=== PATIENT | female | born 1970 | race Caucasian/White ===

== ENCOUNTER 2018-08-16 15:04 | Inpatient (IN) ==
[2018-08-16] MEDS ORDERED: NS 1/2 1000 ML IV 1,000 ML ONE (16:23)
[2018-08-16 16:31] LABS: BASOPHILS # (AUTO) 0.1 X10^3/uL (0.0-0.1); BASOPHILS % (AUTO) 0.7 % (0.2-1.0); EOSINOPHILS # (AUTO) 0.4 x10^3/uL (0.0-0.2); EOSINOPHILS % (AUTO) 3.9 % (0.9-2.9); HEMATOCRIT 46.1 % (36.0-47.0); HEMOGLOBIN 15.7 g/dL (12.0-16.0); LYMPHOCYTES # (AUTO) 2.5 X10^3/uL (1.3-2.9); LYMPHOCYTES % (AUTO) 25.2 % (21.0-51.0); MEAN CORPUSCULAR HEMOGLOBIN 30.6 pg (27.0-34.0); MEAN CORPUSCULAR HGB CONC 33.9 g/dL (33.0-35.0); MEAN PLATELET VOLUME 8.5 fL (7.4-11.0); MONOCYTES # (AUTO) 0.7 x10^3/uL (0.3-0.8); MONOCYTES % (AUTO) 6.5 % (0.0-13.0); NEUTROPHILS # (AUTO) 6.4 x10^3/uL (2.2-4.8); NEUTROPHILS % (AUTO) 63.7 % (42.0-75.0); PLATELET COUNT 332 X10^3/uL (150.0-450.0); RED BLOOD COUNT 5.13 X10^6/uL (3.5-5.4); RED CELL DISTRIBUTION WIDTH 14.2 % (11.6-16.5); WHITE BLOOD COUNT 10.1 X10^3/uL (3.6-10.0)
[2018-08-16 16:46] LABS: BLOOD UREA NITROGEN 9 mg/dL (7-18); CALCIUM 9.6 mg/dL (8.5-10.1); CHLORIDE 103 mmol/L (98-107); CREATININE 0.73 mg/dL (0.55-1.02); SODIUM 141 mmol/L (136-145); TROPONIN I < 0.02 ng/mL (0-1.5); eGFR NON BLACK RACES > 60 (>60)
[2018-08-16] MEDS ORDERED: ZOSYN VIAL 4.5 GRAMS IV ONE (16:50)
[2018-08-16 16:51] LABS: ALANINE AMINOTRANSFERASE 18 Units/L (12-78); ALBUMIN 3.7 g/dL (3.4-5.0); ALKALINE PHOSPHATASE 73 Units/L (46-116); ASPARTATE AMINO TRANSFERASE 14 Units/L (15-37); CREATINE KINASE 28 Units/L (26-192); CREATINE KINASE MB < 1.0 ng/mL (0-4.0); TOTAL PROTEIN 7.8 g/dL (6.4-8.2)
[2018-08-16] MEDS ORDERED: LEVAQUIN PREMIX IV 750 MG 750 MG/150 ML BAG IV ONE (16:51)
[2018-08-16] MEDS ORDERED: NS 100 ML IV + SPIKE MINIBAG* 100 ML ONE (16:51)
[2018-08-16 16:52] LABS: CKMB % 3.6 % (<4)
[2018-08-16] MEDS: LEVAQUIN PREMIX IV 750 MG 750 MG/150 ML BAG IV SCH (17:05)
[2018-08-16] MEDS: NS 1/2 1000 ML IV 1,000 ML IV SCH (17:05)
[2018-08-16] MEDS: ROBITUSSIN DM PO SCH ×2 (17:06→21:03)
[2018-08-16] MEDS: ZOSYN VIAL 4.5 GRAMS 4.5 G in NS 100 ML IV + SPIKE MINIBAG* 100 ML IV SCH (17:06)
[2018-08-16] MEDS ORDERED: KLOR-CON PO PRN (17:07)
[2018-08-16] MEDS ORDERED: K-RIDER 10 MEQ/NS 100 ML 10 MEQ/100 ML BAG IV PRN (17:07)
[2018-08-16] MEDS ORDERED: POTASSIUM CHL 60 MEQ/NS 0.45% 500 ML IV PRN (17:07)
[2018-08-16] MEDS ORDERED: POTASSIUM CHL 40 MEQ/NS 0.45% 500 ML IV PRN (17:07)
[2018-08-16] MEDS ORDERED: POTASSIUM CHLORIDE LIQ 20 MEQ UDC PO PRN (17:07)
[2018-08-16] MEDS ORDERED: MICRO K EXTEN CAP 10 MEQ PO PRN (17:07)
[2018-08-16] MEDS ORDERED: ROBITUSSIN DM ONE (17:12)
[2018-08-16] MEDS ORDERED: K-DUR TAB 20 MEQ ONE (17:12)
[2018-08-16] MEDS: K-DUR TAB 20 MEQ PO PRN ×2 (17:13→17:15)
[2018-08-16] MEDS ORDERED: DUONEB 0.5 MG/3 MG NEB SCH (17:15)
--- NOTE | 2018-08-16 17:57 | RAD ---
HISTORY: Pneumonia Study: PA and lateral views of the chest. Comparison: None. Findings: The cardiomediastinal silhouette is normal. No focal consolidations, pleural effusions or pneumothorax. Osseous structures demonstrate no acute abnormality. Bilateral hyper expansion with coarsening of interstitial markings. IMPRESSION: 1. No acute cardiopulmonary process. 2. Findings of COPD. Reported By:
[2018-08-16 18:01] LABS: ABG BASE EXCESS 4.6 mmol/L (-2.0-2.0); ABG HCO3 28.3 mmol/L (22-26)
[2018-08-16 19:10] VITALS: BMI 27.6
[2018-08-16] MEDS: DUONEB 0.5 MG/3 MG NEB SCH (20:05)
[2018-08-16 22:40] LABS: CKMB % 3.9 % (<4); CREATINE KINASE 26 Units/L (26-192); CREATINE KINASE MB < 1.0 ng/mL (0-4.0); TROPONIN I < 0.02 ng/mL (0-1.5)
[2018-08-16] MEDS: MAGNESIUM SULFATE 1 GRAM/100 mL PREMIX 1 GM/100 ML BAG IV PRN (22:58)
[2018-08-17] MEDS: MAGNESIUM SULFATE 1 GRAM/100 mL PREMIX 1 GM/100 ML BAG IV PRN (00:05)
[2018-08-17] MEDS: ZOSYN VIAL 4.5 GRAMS 4.5 G in NS 100 ML IV + SPIKE MINIBAG* 100 ML IV SCH ×4 (00:50→21:21)
[2018-08-17 06:01] LABS: CREATINE KINASE 26 Units/L (26-192); TROPONIN I < 0.02 ng/mL (0-1.5)
[2018-08-17 06:11] LABS: ALANINE AMINOTRANSFERASE 15 Units/L (12-78); ALBUMIN 2.8 g/dL (3.4-5.0); ALKALINE PHOSPHATASE 57 Units/L (46-116); ASPARTATE AMINO TRANSFERASE 12 Units/L (15-37); BLOOD UREA NITROGEN 8 mg/dL (7-18); CALCIUM 8.7 mg/dL (8.5-10.1); CARBON DIOXIDE 25.6 mmol/L (21-32); CHLORIDE 105 mmol/L (98-107); COR CA(FOR HYPOALB) 9.7 mg/dL (8.5-10.1); CREATININE 0.75 mg/dL (0.55-1.02); SODIUM 140 mmol/L (136-145); TOTAL PROTEIN 6.3 g/dL (6.4-8.2); eGFR NON BLACK RACES > 60 (>60)
[2018-08-17 06:24] LABS: CREATINE KINASE MB < 1.0 ng/mL (0-4.0)
[2018-08-17] MEDS: NS 1/2 1000 ML IV 1,000 ML IV SCH ×3 (06:32→21:00)
[2018-08-17 06:33] LABS: CKMB % 3.9 % (<4)
[2018-08-17 07:26] LABS: BASOPHILS % (AUTO) 0.4 % (0.2-1.0); EOSINOPHILS # (AUTO) 0.4 x10^3/uL (0.0-0.2); EOSINOPHILS % (AUTO) 4.6 % (0.9-2.9); HEMATOCRIT 39.7 % (36.0-47.0); HEMOGLOBIN 13.2 g/dL (12.0-16.0); LYMPHOCYTES # (AUTO) 2.4 X10^3/uL (1.3-2.9); LYMPHOCYTES % (AUTO) 31.2 % (21.0-51.0); MEAN CORPUSCULAR HEMOGLOBIN 30.2 pg (27.0-34.0); MEAN CORPUSCULAR HGB CONC 33.1 g/dL (33.0-35.0); MEAN CORPUSCULAR VOLUME 91.2 fL (80.0-100.0); MEAN PLATELET VOLUME 8.7 fL (7.4-11.0); MONOCYTES # (AUTO) 0.5 x10^3/uL (0.3-0.8); MONOCYTES % (AUTO) 6.6 % (0.0-13.0); NEUTROPHILS # (AUTO) 4.4 x10^3/uL (2.2-4.8); NEUTROPHILS % (AUTO) 57.2 % (42.0-75.0); PLATELET COUNT 298 X10^3/uL (150.0-450.0); RED BLOOD COUNT 4.35 X10^6/uL (3.5-5.4); RED CELL DISTRIBUTION WIDTH 14.1 % (11.6-16.5); WHITE BLOOD COUNT 7.8 X10^3/uL (3.6-10.0)
[2018-08-17] MEDS: LEVAQUIN PREMIX IV 750 MG 750 MG/150 ML BAG IV SCH (08:36)
[2018-08-17] MEDS: ROBITUSSIN DM PO SCH ×4 (08:36→20:34)
[2018-08-17] MEDS: K-DUR TAB 20 MEQ PO PRN (09:17)
[2018-08-17] MEDS: DUONEB 0.5 MG/3 MG NEB SCH ×4 (09:20→21:18)
[2018-08-17] MEDS ORDERED: NS 1/2 1000 ML IV 1,000 ML ONE (11:23)
--- NOTE | 2018-08-17 11:23 | DR.H&P ---
H&P - History & Physical for Day of: H&P Date: 08/16/18 - Chief Complaint Chief Complaint: SOB, CCC - History of Present Illness History of Present Illness: 48 WF DIRECT ADMIT FROM [facility] AFTER PRESENTING WITH CO INCREASED SOB, CCC, WHEEZING. PT HAS PMH OF HTN AND SMOKER. SHE TAKES ANTIHYPERTENSIVE MEDICATION AT HOME AND BP HAS BEEN STABLE. PT REPORTS SHE HAD THE FLU 2 WEEKS AGO AND FELT IMPROVED, THEN STARTED WITH CCC, SOB. PT TOOK PO AMOXIL AND JET NEBS WITHOUT IMPROVEMENT. PT ABG ON ADMISSION PO2 67. PT ADMITTED WITH PNEUMONIA PROTOCOL - Past Medical History Past Medical History: Hypertension - Past Surgical History Surgical History: , Tonsillectomy - Social History Does patient currently use any type of tobacco product: No Have you used tobacco products in the last 12 months: No Type of Tobacco Use: None How many years tobacco product used: 30 Does any household member use tobacco: No Alcohol Use: None Drug Use: None - Medications Home Medications: oseltamivir [From Tamiflu] Adverse Reaction (Intermediate, Verified 08/16/18 16:41) CONTINUE taking the following medications amlodipine 10 mg PO DAILY 08/16/18 [History] amlodipine 10 mg PO DAILY 08/16/18 [History] hydrochlorothiazide 25 mg PO DAILY 08/16/18 [History] ibuprofen 800 mg PO Q6H 08/16/18 [History] lovastatin 20 mg PO DAILY 08/16/18 [History] omeprazole 20 mg PO DAILY 08/16/18 [History] propranolol 10 mg PO BID 08/16/18 [History] - Review of Systems Constitutional: Fever, Chills, Weakness Eyes: No Symptoms Reported ENT: No Symptoms Reported Respiratory: Shortness of Breath, SOB with Excertion, Wheezing Cardiovascular: No Symptoms Reported Gastrointestinal: Nausea Genitourinary: No Symptoms Reported Musculoskeletal: No Symptoms Reported Skin: No Symptoms Reported Neurological: No Symptoms Reported - Physical Exam Vital Signs: Temperature 98.0 F Pulse Rate [Right Brachial] 59 Pulse Rate 64 Respiratory Rate 20 Blood Pressure [Right Arm] 98/50 O2 Sat by Pulse Oximetry 96 Oriented: Normal Eyes: Normal Ear: Normal Nose: Normal Throat: Normal Respiratory: Rhonchi Throughout, Wheezes Throughout Cardiovascular: Normal : Normal Auscultation: Bowel Sounds: Normal Palpation: Normal Tenderness: Normal Skin: Normal Musculoskeletal: Normal Psychiatric: Anxiety Affect: Anxious Speech Pattern: Clear, Appropriate - Assessment/Plan (1) SOB (shortness of breath) Status: Acute Plan: ADMIT, SERIAL CE EKG ON ADMISSION. ABG AND CXR, RESP CONSULT, PNEUMONIA PROTOCOL. RESUME HOME BP MEDICATION. IV HYDRATION (2) Acute bronchitis Status: Acute (3) Hypertension Status: Acute - Allergies Allergies/Adverse Reactions: Allergies Allergy/AdvReac Type Severity Reaction Status Date / Time oseltamivir [From Tamiflu] AdvReac Intermediate Verified 08/16/18 16:41
--- NOTE | 2018-08-17 11:25 | PCM.PROG ---
Progress Note - Progress Note for Day of Date of Exam: 08/17/18 - Subjective Subjective: 48 WF ADMITTED ON 08/16 WITH SOB, CCC. PT HAS SERIAL CE AND EKG ON ADMISSION WHICH WERE STABLE. PT CONTINUES WITH DIFFUSE WHEEZING AND RHONCHI. PT CXR WITH CHRONIC LUNG FINDINGS. PLAN TO ADD IV STERIODS, MYCOMYST, AND BUDESONIDE. - Past Medical Family Social History Past Med/Fam/Surg Hx: No changes since H&P Allergies: Allergies oseltamivir [From Tamiflu] Adverse Reaction (Intermediate, Verified 08/16/18 16:41) [place],Sob,Hives - Review of Systems ROS: No change since H&P - Vital Signs and I&O's Vital Signs: Temperature 98.0 F Pulse Rate [Right Brachial] 59 Pulse Rate 64 Respiratory Rate 20 Blood Pressure [Right Arm] 98/50 O2 Sat by Pulse Oximetry 96 Intake and Output: Intake & Output 08/14/18 08/15/18 08/16/18 08/17/18 11:59 11:59 11:59 11:59 Intake Total 480 / 480 Balance 480 / 480 - Physical Exam Oriented: Normal Eyes: Normal Ear: Normal Nose: Normal Throat: Normal Respiratory: Diminished, Wheezes, Rhonchi Cardiovascular: Normal : Normal Auscultation: Bowel Sounds: Normal Tenderness: Normal Skin: Normal Musculoskeletal: Normal Psychiatric: Anxiety Affect: Anxious Speech Pattern: Clear, Appropriate - Laboratory and Diagnostics Result Diagrams: 08/17/18 04:42 08/17/18 04:42 Labs: 08/16/18 17:11 Sputum - Expectorated Sputum Sputum Culture - Preliminary 08/16/18 17:11 Sputum - Expectorated Sputum - Final Laboratory WBC 7.8 X10^3/uL (3.6-10.0) 08/17/18 04:42 RBC 4.35 X10^6/uL (3.5-5.4) 08/17/18 04:42 Hgb 13.2 g/dL (12.0-16.0) D 08/17/18 04:42 Hct 39.7 % (36.0-47.0) 08/17/18 04:42 MCV 91.2 fL (80.0-100.0) 08/17/18 04:42 MCH 30.2 pg (27.0-34.0) 08/17/18 04:42 MCHC 33.1 g/dL (33.0-35.0) 08/17/18 04:42 RDW 14.1 % (11.6-16.5) 08/17/18 04:42 Plt Count 298 X10^3/uL (150.0-450.0) 08/17/18 04:42 MPV 8.7 fL (7.4-11.0) 08/17/18 04:42 Neut % (Auto) 57.2 % (42.0-75.0) 08/17/18 04:42 Lymph % (Auto) 31.2 % (21.0-51.0) 08/17/18 04:42 [place] % (Auto) 6.6 % (0.0-13.0) 08/17/18 04:42 Eos % (Auto) 4.6 % (0.9-2.9) H 08/17/18 04:42 Baso % (Auto) 0.4 % (0.2-1.0) 08/17/18 04:42 Neut # (Auto) 4.4 x10^3/uL (2.2-4.8) 08/17/18 04:42 Lymph # (Auto) 2.4 X10^3/uL (1.3-2.9) 08/17/18 04:42 [place] # (Auto) 0.5 x10^3/uL (0.3-0.8) 08/17/18 04:42 Eos # (Auto) 0.4 x10^3/uL (0.0-0.2) H 08/17/18 04:42 Baso # (Auto) 0.0 X10^3/uL (0.0-0.1) 08/17/18 04:42 Absolute Nucleated RBC 0.0 /100WBC 08/17/18 04:42 D-Dimer 127 ng/mL (0-400) 08/16/18 16:10 Sample Site rr 08/16/18 17:56 ABG pH 7.480 (7.35-7.45) H 08/16/18 17:56 ABG pCO2 38.0 mmHg (35.0-45.0) 08/16/18 17:56 ABG pO2 64.0 mmHg (80.0-100.0) L 08/16/18 17:56 ABG HCO3 28.3 mmol/L (22-26) H 08/16/18 17:56 ABG O2 Saturation 94.0 % (90-100) 08/16/18 17:56 ABG Base Excess 4.6 mmol/L (-2.0-2.0) H 08/16/18 17:56 Sesar Test Na 08/16/18 17:56 A-a Gradient 38.0 mmHg 08/16/18 17:56 FiO2 21.0 08/16/18 17:56 Blood Gas Comments Antoinette well gmb 08/16/18 17:56 Sodium 140 mmol/L (136-145) 08/17/18 04:42 Corrected Sodium TNP 08/17/18 04:42 Potassium 3.7 mmol/L (3.5-5.1) 08/17/18 04:42 Chloride 105 mmol/L (98-107) 08/17/18 04:42 Carbon Dioxide 25.6 mmol/L (21-32) 08/17/18 04:42 BUN 8 mg/dL (7-18) 08/17/18 04:42 Creatinine 0.75 mg/dL (0.55-1.02) 08/17/18 04:42 Est GFR (MDRD) Af Amer > 60 (>60) 08/17/18 04:42 Est GFR (MDRD) Non-Af > 60 (>60) 08/17/18 04:42 Glucose 93 mg/dL (65-99) 08/17/18 04:42 Calcium 8.7 mg/dL (8.5-10.1) 08/17/18 04:42 Corrected Calcium 9.7 mg/dL (8.5-10.1) 08/17/18 04:42 Magnesium 2.1 mg/dL (1.7-2.9) 08/17/18 04:42 Total Bilirubin 0.20 mg/dL (0.2-1.0) 08/17/18 04:42 AST 12 Units/L (15-37) L 08/17/18 04:42 ALT 15 Units/L (12-78) 08/17/18 04:42 Alkaline Phosphatase 57 Units/L (46-116) 08/17/18 04:42 Creatine Kinase 26 Units/L (26-192) 08/17/18 04:42 CK-MB (CK-2) < 1.0 ng/mL (0-4.0) 08/17/18 04:42 CK/CKMB % Calc 3.9 % (<4) 08/17/18 04:42 Troponin I < 0.02 ng/mL (0-1.5) 08/17/18 04:42 Total Protein 6.3 g/dL (6.4-8.2) L 08/17/18 04:42 Albumin 2.8 g/dL (3.4-5.0) L 08/17/18 04:42 Globulin 3.5 g/dL (2.5-4.5) 08/17/18 04:42 Albumin/Globulin Ratio 0.8 Ratio (1.1-2.1) L 08/17/18 04:42 Influenza Type A (PCR) Negative (NEGATIVE) 08/16/18 16:40 Influenza Type B (PCR) Negative (NEGATIVE) 08/16/18 16:40 - Plan (1) SOB (shortness of breath) Status: Acute Plan: SERIAL CE EKG ON ADMISSION. ABG AND CXR, RESP CONSULT, PNEUMONIA PROTOCOL. RESUME HOME BP MEDICATION. ADD IV STERIODS, MYCOMYST, AND BUDESONIDE. IV HYDRATION (2) Acute bronchitis Status: Acute (3) Hypertension Status: Acute
[2018-08-17 11:29] LABS: BILIRUBIN,URINE NEGATIVE (NEGATIVE); BLOOD/HEMOGLOBIN,URINE 2+ (NEGATIVE); GLUCOSE, URINE NEGATIVE (NEGATIVE); KETONES,URINE NEGATIVE (NEGATIVE); LEUKOCYTE ESTERASE ,URINE NEGATIVE (NEGATIVE); NITRITES,URINE NEGATIVE (NEGATIVE); PROTEIN,URINE NEGATIVE (NEGATIVE); UROBILINOGEN,URINE NORMAL (NORMAL)
[2018-08-17 11:52] LABS: APPEARANCE,URINE CLEAR (CLEAR); BACTERIA,URINE NEGATIVE /HPF (NEGATIVE); COLOR,URINE YELLOW (YELLOW); RBC,URINE 0-2 /HPF (NONE SEEN); SQUAMOUS EPITHELIAL CELL,UR MODERATE /HPF (NEGATIVE)
[2018-08-17] MEDS ORDERED: PULMICORT NEB TX 0.5 MG ONE (11:58)
[2018-08-17 12:05] LABS: HEMATOCRIT 38.7 % (36.0-47.0)
[2018-08-17] MEDS: SOLU-Medrol 125 MG VIAL IVP SCH ×2 (12:08→14:28)
[2018-08-17] MEDS: PROTONIX INJ 40 MG VIAL IVP SCH (12:08)
[2018-08-17] MEDS: MUCOMYST 20% 200 MG/ML NEB SCH ×3 (12:13→21:18)
[2018-08-17] MEDS: PULMICORT NEB TX 0.5 MG NEB SCH ×2 (12:13→21:18)
[2018-08-17] MEDS: SOLU-Medrol 40 MG VIAL IVP SCH (21:21)
[2018-08-18] MEDS: NS 1/2 1000 ML IV 1,000 ML IV SCH ×3 (00:45→18:56)
[2018-08-18] MEDS ORDERED: NS 1/2 1000 ML IV 1,000 ML ONE ×2 (03:18→18:46)
[2018-08-18] MEDS: TUSSIONEX PENNKINETIC SUSP PO PRN (03:39)
[2018-08-18] MEDS: SOLU-Medrol 40 MG VIAL IVP SCH ×3 (05:02→22:03)
[2018-08-18] MEDS: ZOSYN VIAL 4.5 GRAMS 4.5 G in NS 100 ML IV + SPIKE MINIBAG* 100 ML IV SCH ×3 (05:02→22:03)
[2018-08-18 05:31] LABS: BASOPHILS # (AUTO) 0.1 X10^3/uL (0.0-0.1); BASOPHILS % (AUTO) 0.4 % (0.2-1.0); HEMATOCRIT 37.7 % (36.0-47.0); HEMOGLOBIN 12.4 g/dL (12.0-16.0); LYMPHOCYTES # (AUTO) 0.8 X10^3/uL (1.3-2.9); MEAN CORPUSCULAR HEMOGLOBIN 29.9 pg (27.0-34.0); MEAN CORPUSCULAR VOLUME 90.8 fL (80.0-100.0); MEAN PLATELET VOLUME 8.3 fL (7.4-11.0); MONOCYTES # (AUTO) 0.3 x10^3/uL (0.3-0.8); NEUTROPHILS # (AUTO) 23.9 x10^3/uL (2.2-4.8); NEUTROPHILS % (AUTO) 95.6 % (42.0-75.0); PLATELET COUNT 300 X10^3/uL (150.0-450.0); RED BLOOD COUNT 4.16 X10^6/uL (3.5-5.4); RED CELL DISTRIBUTION WIDTH 14.2 % (11.6-16.5)
[2018-08-18 05:55] LABS: ALANINE AMINOTRANSFERASE 13 Units/L (12-78); ALBUMIN 2.9 g/dL (3.4-5.0); ALKALINE PHOSPHATASE 54 Units/L (46-116); ASPARTATE AMINO TRANSFERASE 10 Units/L (15-37); BLOOD UREA NITROGEN 8 mg/dL (7-18); CALCIUM 9.1 mg/dL (8.5-10.1); CARBON DIOXIDE 22.6 mmol/L (21-32); CHLORIDE 108 mmol/L (98-107); COR NA(FOR HYPERGLY) 142 mmol/L (136-145); CREATININE 0.68 mg/dL (0.55-1.02); SODIUM 141 mmol/L (136-145); TOTAL PROTEIN 6.4 g/dL (6.4-8.2); eGFR NON BLACK RACES > 60 (>60)
--- NOTE | 2018-08-18 06:18 | RAD ---
Examination: Chest, PA and lateral views History: Cough and wheezing Comparison 08/16/2018 Findings: Continued normal heart size. The lungs are clear of active disease. The diaphragm is low and slightly flat. No hilar enlargement, infiltrate or mass formation noted. Impression: Findings suggest COPD. No interval change or acute abnormality noted. Reported By:
[2018-08-18] MEDS: K-DUR TAB 20 MEQ PO PRN (06:36)
[2018-08-18 06:44] LABS: BAND NEUTROPHILS % 5 % (0-10); PLATELET MORPHOLOGY COMMENT NORMAL (NORMAL)
[2018-08-18] MEDS: LEVAQUIN PREMIX IV 750 MG 750 MG/150 ML BAG IV SCH (09:31)
[2018-08-18] MEDS: DUONEB 0.5 MG/3 MG NEB SCH ×4 (09:31→20:24)
[2018-08-18] MEDS: MUCOMYST 20% 200 MG/ML NEB SCH ×4 (09:31→20:24)
[2018-08-18] MEDS: PULMICORT NEB TX 0.5 MG NEB SCH ×2 (09:31→20:24)
[2018-08-18] MEDS: ROBITUSSIN DM PO SCH ×4 (09:32→20:22)
[2018-08-18] MEDS: PROTONIX INJ 40 MG VIAL IVP SCH (09:32)
[2018-08-18] MEDS: DIFLUCAN 200 MG IV PREMIX* 200 MG/100 ML BAG IV SCH (13:31)
[2018-08-18] MEDS: NICOTINE PATCH TD SCH (13:43)
[2018-08-18] MEDS: MILK OF MAGNESIA PO SCH (22:03)
[2018-08-18] MEDS: COLACE CAP 100 MG PO SCH (22:07)
[2018-08-19] MEDS: NS 1/2 1000 ML IV 1,000 ML IV SCH ×3 (02:37→13:26)
[2018-08-19] MEDS ORDERED: NS 1/2 1000 ML IV 1,000 ML ONE ×2 (04:58→20:12)
[2018-08-19] MEDS: SOLU-Medrol 40 MG VIAL IVP SCH (05:14)
[2018-08-19] MEDS: ZOSYN VIAL 4.5 GRAMS 4.5 G in NS 100 ML IV + SPIKE MINIBAG* 100 ML IV SCH ×3 (05:14→21:50)
[2018-08-19] MEDS: TUSSIONEX PENNKINETIC SUSP PO PRN (05:14)
[2018-08-19 06:46] LABS: BASOPHILS % (AUTO) 0.1 % (0.2-1.0); HEMATOCRIT 36.7 % (36.0-47.0); LYMPHOCYTES # (AUTO) 0.8 X10^3/uL (1.3-2.9); LYMPHOCYTES % (AUTO) 2.4 % (21.0-51.0); MEAN CORPUSCULAR HEMOGLOBIN 29.8 pg (27.0-34.0); MEAN CORPUSCULAR HGB CONC 32.7 g/dL (33.0-35.0); MEAN CORPUSCULAR VOLUME 91.4 fL (80.0-100.0); MEAN PLATELET VOLUME 8.9 fL (7.4-11.0); MONOCYTES # (AUTO) 0.6 x10^3/uL (0.3-0.8); MONOCYTES % (AUTO) 1.7 % (0.0-13.0); NEUTROPHILS # (AUTO) 32.3 x10^3/uL (2.2-4.8); NEUTROPHILS % (AUTO) 95.8 % (42.0-75.0); PLATELET COUNT 315 X10^3/uL (150.0-450.0); RED BLOOD COUNT 4.01 X10^6/uL (3.5-5.4); RED CELL DISTRIBUTION WIDTH 14.1 % (11.6-16.5)
[2018-08-19 06:58] LABS: WHITE BLOOD COUNT 33.8 X10^3/uL (3.6-10.0)
[2018-08-19 06:59] LABS: ALANINE AMINOTRANSFERASE 15 Units/L (12-78); ALBUMIN 2.8 g/dL (3.4-5.0); ALKALINE PHOSPHATASE 50 Units/L (46-116); ASPARTATE AMINO TRANSFERASE 12 Units/L (15-37); BLOOD UREA NITROGEN 13 mg/dL (7-18); CALCIUM 9.1 mg/dL (8.5-10.1); CARBON DIOXIDE 24.8 mmol/L (21-32); CHLORIDE 109 mmol/L (98-107); COR CA(FOR HYPOALB) 10.1 mg/dL (8.5-10.1); COR NA(FOR HYPERGLY) 146 mmol/L (136-145); CREATININE 0.71 mg/dL (0.55-1.02); SODIUM 145 mmol/L (136-145); TOTAL PROTEIN 6.2 g/dL (6.4-8.2); eGFR NON BLACK RACES > 60 (>60)
[2018-08-19 07:32] LABS: BAND NEUTROPHILS % 2 % (0-10); PLATELET MORPHOLOGY COMMENT NORMAL (NORMAL)
[2018-08-19] MEDS: LEVAQUIN PREMIX IV 750 MG 750 MG/150 ML BAG IV SCH (08:45)
[2018-08-19] MEDS: PROTONIX INJ 40 MG VIAL IVP SCH (08:45)
[2018-08-19] MEDS: NICOTINE PATCH TD SCH (08:45)
[2018-08-19] MEDS: K-DUR TAB 20 MEQ PO PRN (08:46)
[2018-08-19] MEDS: ROBITUSSIN DM PO SCH ×4 (08:46→20:11)
[2018-08-19] MEDS: MILK OF MAGNESIA PO SCH ×3 (08:46→20:16)
[2018-08-19] MEDS: DIFLUCAN 200 MG IV PREMIX* 200 MG/100 ML BAG IV SCH (08:47)
--- NOTE | 2018-08-19 09:24 | PCM.PROG ---
Progress Note - Progress Note for Day of Date of Exam: 08/18/18 - Subjective Subjective: 48 WF ADMITTED ON 08/16 WITH SOB, CCC. PT HAS SERIAL CE AND EKG ON ADMISSION WHICH WERE STABLE. PT CONTINUES WITH DIFFUSE WHEEZING AND RHONCHI. PT CXR WITH CHRONIC LUNG FINDINGS. WBC 25.0 THIS AM, PT IS AFEBRILE, SUSPECT ELEVATION DUE TO IV SOLU MEDROL. PT STATES SHE IS FEELING MUCH IMPROVED SINCE ADMISSION, DISCUSSED CT CHEST DUE TO CONTINUED WHEEZING, DIMINISHED LUNG BASES AND HX OF SMOKING. - Past Medical Family Social History Past Med/Fam/Surg Hx: No changes since H&P Allergies: Allergies oseltamivir [From Tamiflu] Adverse Reaction (Intermediate, Verified 08/16/18 16:41) [place],Sob,Hives - Review of Systems ROS: No change since H&P - Vital Signs and I&O's Vital Signs: Temperature 98.1 F Pulse Rate [Right Brachial] 91 Pulse Rate 108 Respiratory Rate 18 Blood Pressure [Right Arm] 110/63 O2 Sat by Pulse Oximetry 97 Intake and Output: Intake & Output 08/16/18 08/17/18 08/18/18 08/19/18 11:59 11:59 11:59 11:59 Intake Total 480 / 480 4770 / 4770 6511 / 6511 Balance 480 / 480 4770 / 4770 6511 / 6511 - Physical Exam Oriented: Normal Eyes: Normal Ear: Normal Nose: Normal Throat: Normal Respiratory: Diminished, Wheezes, Rhonchi Cardiovascular: Normal : Normal Auscultation: Bowel Sounds: Normal Tenderness: Normal Skin: Normal Musculoskeletal: Normal Psychiatric: Anxiety Affect: Anxious Speech Pattern: Clear, Appropriate - Laboratory and Diagnostics Result Diagrams: 08/19/18 05:19 08/19/18 05:19 Labs: 08/16/18 16:10 Blood Blood Culture - Preliminary 08/16/18 16:15 Blood Blood Culture - Preliminary 08/17/18 10:31 Urine,Clean Catch Urine Culture - Preliminary 08/16/18 17:11 Sputum - Expectorated Sputum Sputum Culture - Preliminary 08/16/18 17:11 Sputum - Expectorated Sputum - Final Laboratory WBC 33.8 X10^3/uL (3.6-10.0) H* D 08/19/18 05:19 RBC 4.01 X10^6/uL (3.5-5.4) 08/19/18 05:19 Hgb 12.0 g/dL (12.0-16.0) 08/19/18 05:19 Hct 36.7 % (36.0-47.0) 08/19/18 05:19 MCV 91.4 fL (80.0-100.0) 08/19/18 05:19 MCH 29.8 pg (27.0-34.0) 08/19/18 05:19 MCHC 32.7 g/dL (33.0-35.0) L 08/19/18 05:19 RDW 14.1 % (11.6-16.5) 08/19/18 05:19 Plt Count 315 X10^3/uL (150.0-450.0) 08/19/18 05:19 Plt Count Comment Adequate (ADEQUATE) 08/19/18 05:19 MPV 8.9 fL (7.4-11.0) 08/19/18 05:19 Neut % (Auto) 95.8 % (42.0-75.0) H 08/19/18 05:19 Lymph % (Auto) 2.4 % (21.0-51.0) L 08/19/18 05:19 [place] % (Auto) 1.7 % (0.0-13.0) 08/19/18 05:19 Eos % (Auto) 0.0 % (0.9-2.9) L 08/19/18 05:19 Baso % (Auto) 0.1 % (0.2-1.0) L 08/19/18 05:19 Neut # (Auto) 32.3 x10^3/uL (2.2-4.8) H 08/19/18 05:19 Lymph # (Auto) 0.8 X10^3/uL (1.3-2.9) L 08/19/18 05:19 [place] # (Auto) 0.6 x10^3/uL (0.3-0.8) 08/19/18 05:19 Eos # (Auto) 0.0 x10^3/uL (0.0-0.2) 08/19/18 05:19 Baso # (Auto) 0.0 X10^3/uL (0.0-0.1) 08/19/18 05:19 Absolute Nucleated RBC 0.0 /100WBC 08/19/18 05:19 Total Counted 100 08/19/18 05:19 Neutrophils % (Manual) 93 % (39-76) H 08/19/18 05:19 Band Neutrophils % 2 % (0-10) 08/19/18 05:19 Lymphocytes % (Manual) 4 % (13-43) L 08/19/18 05:19 Monocytes % (Manual) 1 % (4-9) L 08/19/18 05:19 Plt Morphology Comment Normal (NORMAL) 08/19/18 05:19 RBC Morphology Normal (NORMAL) 08/19/18 05:19 D-Dimer 127 ng/mL (0-400) 08/16/18 16:10 Sample Site rr 08/16/18 17:56 ABG pH 7.480 (7.35-7.45) H 08/16/18 17:56 ABG pCO2 38.0 mmHg (35.0-45.0) 08/16/18 17:56 ABG pO2 64.0 mmHg (80.0-100.0) L 08/16/18 17:56 ABG HCO3 28.3 mmol/L (22-26) H 08/16/18 17:56 ABG O2 Saturation 94.0 % (90-100) 08/16/18 17:56 ABG Base Excess 4.6 mmol/L (-2.0-2.0) H 08/16/18 17:56 Sesar Test Na 08/16/18 17:56 A-a Gradient 38.0 mmHg 08/16/18 17:56 FiO2 21.0 08/16/18 17:56 Blood Gas Comments Antoinette well gmb 08/16/18 17:56 Sodium 145 mmol/L (136-145) 08/19/18 05:19 Corrected Sodium 146 mmol/L (136-145) H 08/19/18 05:19 Potassium 3.8 mmol/L (3.5-5.1) 08/19/18 05:19 Chloride 109 mmol/L (98-107) H 08/19/18 05:19 Carbon Dioxide 24.8 mmol/L (21-32) 08/19/18 05:19 BUN 13 mg/dL (7-18) 08/19/18 05:19 Creatinine 0.71 mg/dL (0.55-1.02) 08/19/18 05:19 Est GFR (MDRD) Af Amer > 60 (>60) 08/19/18 05:19 Est GFR (MDRD) Non-Af > 60 (>60) 08/19/18 05:19 Glucose 137 mg/dL (65-99) H 08/19/18 05:19 Calcium 9.1 mg/dL (8.5-10.1) 08/19/18 05:19 Corrected Calcium 10.1 mg/dL (8.5-10.1) 08/19/18 05:19 Magnesium 2.1 mg/dL (1.7-2.9) 08/17/18 04:42 Total Bilirubin 0.10 mg/dL (0.2-1.0) L 08/19/18 05:19 AST 12 Units/L (15-37) L 08/19/18 05:19 ALT 15 Units/L (12-78) 08/19/18 05:19 Alkaline Phosphatase 50 Units/L (46-116) 08/19/18 05:19 Creatine Kinase 26 Units/L (26-192) 08/17/18 04:42 CK-MB (CK-2) < 1.0 ng/mL (0-4.0) 08/17/18 04:42 CK/CKMB % Calc 3.9 % (<4) 08/17/18 04:42 Troponin I < 0.02 ng/mL (0-1.5) 08/17/18 04:42 Total Protein 6.2 g/dL (6.4-8.2) L 08/19/18 05:19 Albumin 2.8 g/dL (3.4-5.0) L 08/19/18 05:19 Globulin 3.4 g/dL (2.5-4.5) 08/19/18 05:19 Albumin/Globulin Ratio 0.8 Ratio (1.1-2.1) L 08/19/18 05:19 Specimen Type Clean catch urine 08/17/18 10:31 Urine Color Yellow (YELLOW) 08/17/18 10:31 Urine Appearance Clear (CLEAR) 08/17/18 10:31 Urine pH 7.0 (5.0 - 8.0) 08/17/18 10:31 Ur Specific [place] 1.010 (1.000-1.030) 08/17/18 10:31 Urine Protein Negative (NEGATIVE) 08/17/18 10:31 Urine Glucose (UA) Negative (NEGATIVE) 08/17/18 10:31 Urine Ketones Negative (NEGATIVE) 08/17/18 10:31 Urine Occult Blood 2+ (NEGATIVE) 08/17/18 10:31 Urine Nitrite Negative (NEGATIVE) 08/17/18 10:31 Urine Bilirubin Negative (NEGATIVE) 08/17/18 10:31 Urine Urobilinogen Normal (NORMAL) 08/17/18 10:31 Ur Leukocyte Esterase Negative (NEGATIVE) 08/17/18 10:31 Urine RBC 0-2 /HPF (NONE SEEN) 08/17/18 10:31 Urine WBC 0-2 /HPF (NONE SEEN) 08/17/18 10:31 Ur Squamous Epith Cells Moderate /HPF (NEGATIVE) 08/17/18 10:31 Urine Bacteria Negative /HPF (NEGATIVE) 08/17/18 10:31 Ur Culture Indicated? Yes/culture set up 08/17/18 10:31 Influenza Type A (PCR) Negative (NEGATIVE) 08/16/18 16:40 Influenza Type B (PCR) Negative (NEGATIVE) 08/16/18 16:40 - Plan (1) SOB (shortness of breath) Status: Acute Plan: SERIAL CE EKG ON ADMISSION. ABG AND CXR, RESP CONSULT, PNEUMONIA PROTOCOL. RESUME HOME BP MEDICATION. ADD IV STERIODS, MYCOMYST, AND BUDESONIDE. IV HYDRATION (2) Acute bronchitis Status: Acute (3) Hypertension Status: Acute
[2018-08-19] MEDS: DUONEB 0.5 MG/3 MG NEB SCH ×4 (09:35→21:37)
[2018-08-19] MEDS: MUCOMYST 20% 200 MG/ML NEB SCH ×4 (09:35→21:37)
[2018-08-19] MEDS: PULMICORT NEB TX 0.5 MG NEB SCH ×2 (09:35→21:37)
[2018-08-19 16:48] LABS: BASOPHILS # (AUTO) 0.1 X10^3/uL (0.0-0.1); BASOPHILS % (AUTO) 0.3 % (0.2-1.0); HEMATOCRIT 37.1 % (36.0-47.0); HEMOGLOBIN 12.1 g/dL (12.0-16.0); LYMPHOCYTES # (AUTO) 0.7 X10^3/uL (1.3-2.9); LYMPHOCYTES % (AUTO) 2.1 % (21.0-51.0); MEAN CORPUSCULAR HEMOGLOBIN 29.7 pg (27.0-34.0); MEAN CORPUSCULAR HGB CONC 32.5 g/dL (33.0-35.0); MEAN CORPUSCULAR VOLUME 91.4 fL (80.0-100.0); MEAN PLATELET VOLUME 8.8 fL (7.4-11.0); MONOCYTES # (AUTO) 0.6 x10^3/uL (0.3-0.8); MONOCYTES % (AUTO) 1.9 % (0.0-13.0); NEUTROPHILS # (AUTO) 31.4 x10^3/uL (2.2-4.8); NEUTROPHILS % (AUTO) 95.7 % (42.0-75.0); PLATELET COUNT 326 X10^3/uL (150.0-450.0); RED BLOOD COUNT 4.06 X10^6/uL (3.5-5.4); RED CELL DISTRIBUTION WIDTH 14.4 % (11.6-16.5)
[2018-08-19 17:08] LABS: WHITE BLOOD COUNT 32.9 X10^3/uL (3.6-10.0)
[2018-08-19 17:09] LABS: PLATELET MORPHOLOGY COMMENT NORMAL (NORMAL)
--- NOTE | 2018-08-19 17:23 | PCM.PROG ---
Progress Note - Progress Note for Day of Date of Exam: 08/19/18 - Subjective Subjective: 48 WF ADMITTED ON 08/16 WITH SOB, CCC. PT HAS SERIAL CE AND EKG ON ADMISSION WHICH WERE STABLE. PT CONTINUES WITH DIFFUSE WHEEZING AND RHONCHI. PT CXR WITH CHRONIC LUNG FINDINGS. WBC 33.8 THIS AM, WE WILL REPEAT CBC THIS AFTERNOON. PT IS AFEBRILE, SUSPECT ELEVATION DUE TO IV SOLU MEDROL, DC STEROIDS. PT STATES SHE IS WHEEZING MORE TODAY. CT CHEST DUE TO CONTINUED WHEEZING, DIMINISHED LUNG BASES AND HX OF SMOKING. - Past Medical Family Social History Past Med/Fam/Surg Hx: No changes since H&P Allergies: Allergies oseltamivir [From Tamiflu] Adverse Reaction (Intermediate, Verified 08/16/18 16:41) [place],Hives - Review of Systems ROS: No change since H&P - Vital Signs and I&O's Vital Signs: Temperature 98.2 F Pulse Rate [Right Brachial] 76 Pulse Rate 92 Respiratory Rate 18 Blood Pressure [Right Arm] 135/65 O2 Sat by Pulse Oximetry 98 Intake and Output: Intake & Output 08/17/18 08/18/18 08/19/18 08/20/18 11:59 11:59 11:59 11:59 Intake Total 480 / 480 4770 / 4770 6511 / 6511 440 / 440 Balance 480 / 480 4770 / 4770 6511 / 6511 440 / 440 - Physical Exam Oriented: Normal Eyes: Normal Ear: Normal Nose: Normal Throat: Normal Respiratory: Diminished, Wheezes, Rhonchi Cardiovascular: Normal : Normal Auscultation: Bowel Sounds: Normal Tenderness: Normal Skin: Normal Musculoskeletal: Normal Psychiatric: Anxiety Affect: Anxious Speech Pattern: Clear, Appropriate - Laboratory and Diagnostics Result Diagrams: 08/19/18 15:50 08/19/18 05:19 Labs: 08/17/18 10:31 Urine,Clean Catch Urine Culture - Final 08/16/18 17:11 Sputum - Expectorated Sputum Sputum Culture - Final Enterobacter Cloacae 08/16/18 17:11 Sputum - Expectorated Sputum - Final 08/16/18 16:10 Blood Blood Culture - Preliminary 08/16/18 16:15 Blood Blood Culture - Preliminary Laboratory WBC 32.9 X10^3/uL (3.6-10.0) H* 08/19/18 15:50 RBC 4.06 X10^6/uL (3.5-5.4) 08/19/18 15:50 Hgb 12.1 g/dL (12.0-16.0) 08/19/18 15:50 Hct 37.1 % (36.0-47.0) 08/19/18 15:50 MCV 91.4 fL (80.0-100.0) 08/19/18 15:50 MCH 29.7 pg (27.0-34.0) 08/19/18 15:50 MCHC 32.5 g/dL (33.0-35.0) L 08/19/18 15:50 RDW 14.4 % (11.6-16.5) 08/19/18 15:50 Plt Count 326 X10^3/uL (150.0-450.0) 08/19/18 15:50 Plt Count Comment Adequate (ADEQUATE) 08/19/18 15:50 MPV 8.8 fL (7.4-11.0) 08/19/18 15:50 Neut % (Auto) 95.7 % (42.0-75.0) H 08/19/18 15:50 Lymph % (Auto) 2.1 % (21.0-51.0) L 08/19/18 15:50 [place] % (Auto) 1.9 % (0.0-13.0) 08/19/18 15:50 Eos % (Auto) 0.0 % (0.9-2.9) L 08/19/18 15:50 Baso % (Auto) 0.3 % (0.2-1.0) 08/19/18 15:50 Neut # (Auto) 31.4 x10^3/uL (2.2-4.8) H 08/19/18 15:50 Lymph # (Auto) 0.7 X10^3/uL (1.3-2.9) L 08/19/18 15:50 [place] # (Auto) 0.6 x10^3/uL (0.3-0.8) 08/19/18 15:50 Eos # (Auto) 0.0 x10^3/uL (0.0-0.2) 08/19/18 15:50 Baso # (Auto) 0.1 X10^3/uL (0.0-0.1) 08/19/18 15:50 Absolute Nucleated RBC 0.0 /100WBC 08/19/18 15:50 Total Counted 100 08/19/18 15:50 Neutrophils % (Manual) 93 % (39-76) H 08/19/18 15:50 Band Neutrophils % 2 % (0-10) 08/19/18 05:19 Lymphocytes % (Manual) 3 % (13-43) L 08/19/18 15:50 Monocytes % (Manual) 4 % (4-9) 08/19/18 15:50 Plt Morphology Comment Normal (NORMAL) 08/19/18 15:50 RBC Morphology Normal (NORMAL) 08/19/18 15:50 D-Dimer 127 ng/mL (0-400) 08/16/18 16:10 Sample Site rr 08/16/18 17:56 ABG pH 7.480 (7.35-7.45) H 08/16/18 17:56 ABG pCO2 38.0 mmHg (35.0-45.0) 08/16/18 17:56 ABG pO2 64.0 mmHg (80.0-100.0) L 08/16/18 17:56 ABG HCO3 28.3 mmol/L (22-26) H 08/16/18 17:56 ABG O2 Saturation 94.0 % (90-100) 08/16/18 17:56 ABG Base Excess 4.6 mmol/L (-2.0-2.0) H 08/16/18 17:56 Sesar Test Na 08/16/18 17:56 A-a Gradient 38.0 mmHg 08/16/18 17:56 FiO2 21.0 08/16/18 17:56 Blood Gas Comments Antoinette well gmb 08/16/18 17:56 Sodium 145 mmol/L (136-145) 08/19/18 05:19 Corrected Sodium 146 mmol/L (136-145) H 08/19/18 05:19 Potassium 3.8 mmol/L (3.5-5.1) 08/19/18 05:19 Chloride 109 mmol/L (98-107) H 08/19/18 05:19 Carbon Dioxide 24.8 mmol/L (21-32) 08/19/18 05:19 BUN 13 mg/dL (7-18) 08/19/18 05:19 Creatinine 0.71 mg/dL (0.55-1.02) 08/19/18 05:19 Est GFR (MDRD) Af Amer > 60 (>60) 08/19/18 05:19 Est GFR (MDRD) Non-Af > 60 (>60) 08/19/18 05:19 Glucose 137 mg/dL (65-99) H 08/19/18 05:19 Calcium 9.1 mg/dL (8.5-10.1) 08/19/18 05:19 Corrected Calcium 10.1 mg/dL (8.5-10.1) 08/19/18 05:19 Magnesium 2.1 mg/dL (1.7-2.9) 08/17/18 04:42 Total Bilirubin 0.10 mg/dL (0.2-1.0) L 08/19/18 05:19 AST 12 Units/L (15-37) L 08/19/18 05:19 ALT 15 Units/L (12-78) 08/19/18 05:19 Alkaline Phosphatase 50 Units/L (46-116) 08/19/18 05:19 Creatine Kinase 26 Units/L (26-192) 08/17/18 04:42 CK-MB (CK-2) < 1.0 ng/mL (0-4.0) 08/17/18 04:42 CK/CKMB % Calc 3.9 % (<4) 08/17/18 04:42 Troponin I < 0.02 ng/mL (0-1.5) 08/17/18 04:42 Total Protein 6.2 g/dL (6.4-8.2) L 08/19/18 05:19 Albumin 2.8 g/dL (3.4-5.0) L 08/19/18 05:19 Globulin 3.4 g/dL (2.5-4.5) 08/19/18 05:19 Albumin/Globulin Ratio 0.8 Ratio (1.1-2.1) L 08/19/18 05:19 Specimen Type Clean catch urine 08/17/18 10:31 Urine Color Yellow (YELLOW) 08/17/18 10:31 Urine Appearance Clear (CLEAR) 08/17/18 10:31 Urine pH 7.0 (5.0 - 8.0) 08/17/18 10:31 Ur Specific [place] 1.010 (1.000-1.030) 08/17/18 10:31 Urine Protein Negative (NEGATIVE) 08/17/18 10:31 Urine Glucose (UA) Negative (NEGATIVE) 08/17/18 10:31 Urine Ketones Negative (NEGATIVE) 08/17/18 10:31 Urine Occult Blood 2+ (NEGATIVE) 08/17/18 10:31 Urine Nitrite Negative (NEGATIVE) 08/17/18 10:31 Urine Bilirubin Negative (NEGATIVE) 08/17/18 10:31 Urine Urobilinogen Normal (NORMAL) 08/17/18 10:31 Ur Leukocyte Esterase Negative (NEGATIVE) 08/17/18 10:31 Urine RBC 0-2 /HPF (NONE SEEN) 08/17/18 10:31 Urine WBC 0-2 /HPF (NONE SEEN) 08/17/18 10:31 Ur Squamous Epith Cells Moderate /HPF (NEGATIVE) 08/17/18 10:31 Urine Bacteria Negative /HPF (NEGATIVE) 08/17/18 10:31 Ur Culture Indicated? Yes/culture set up 08/17/18 10:31 Influenza Type A (PCR) Negative (NEGATIVE) 08/16/18 16:40 Influenza Type B (PCR) Negative (NEGATIVE) 08/16/18 16:40 - Plan (1) SOB (shortness of breath) Status: Acute Plan: SERIAL CE EKG ON ADMISSION. ABG AND CXR, RESP CONSULT, PNEUMONIA PROTOCOL. RESUME HOME BP MEDICATION. ADD IV STERIODS, MYCOMYST, AND BUDESONIDE. IV HYDRATION (2) Acute bronchitis Status: Acute (3) Hypertension Status: Acute
--- NOTE | 2018-08-19 20:00 | CT ---
CT CHEST WITH IV CONTRAST HISTORY: Pneumonia Comparison: Radiograph 08/18/2018 Technique: Multiple axial images of the chest were obtained from the thoracic inlet to the upper abdomen after the administration of IV contrast.Dose reduction techniques including Automated Exposure Control (AEC) and adjustment of mA and kV were utlized. Findings: The heart is normal in size. No pericardial effusion. No suspicious mediastinal or axillary lymph nodes. Although not optimized to detect pulmonary embolism, no large central pulmonary emboli are seen. Streaky atelectasis involving the lung bases bilaterally with some peribronchial thickening. No definite dense consolidation. Airways are patent. No suspicious pulmonary nodules or masses. Limited images of the upper abdomen are unremarkable. No aggressive osseous lesions. IMPRESSION: 1. Streaky bibasilar atelectasis without definite consolidation. Reported By:
[2018-08-19] MEDS: COLACE CAP 100 MG PO SCH (20:15)
[2018-08-20] MEDS: ZOSYN VIAL 4.5 GRAMS 4.5 G in NS 100 ML IV + SPIKE MINIBAG* 100 ML IV SCH ×3 (05:09→21:36)
[2018-08-20] MEDS: NS 1/2 1000 ML IV 1,000 ML IV SCH ×2 (05:09→21:37)
[2018-08-20 05:35] LABS: BASOPHILS # (AUTO) 0.1 X10^3/uL (0.0-0.1); BASOPHILS % (AUTO) 0.2 % (0.2-1.0); HEMATOCRIT 36.2 % (36.0-47.0); HEMOGLOBIN 11.9 g/dL (12.0-16.0); LYMPHOCYTES # (AUTO) 1.9 X10^3/uL (1.3-2.9); LYMPHOCYTES % (AUTO) 8.2 % (21.0-51.0); MEAN CORPUSCULAR HEMOGLOBIN 29.9 pg (27.0-34.0); MEAN CORPUSCULAR HGB CONC 32.8 g/dL (33.0-35.0); MEAN PLATELET VOLUME 8.4 fL (7.4-11.0); MONOCYTES # (AUTO) 0.9 x10^3/uL (0.3-0.8); MONOCYTES % (AUTO) 4.1 % (0.0-13.0); NEUTROPHILS # (AUTO) 20.1 x10^3/uL (2.2-4.8); NEUTROPHILS % (AUTO) 87.5 % (42.0-75.0); PLATELET COUNT 312 X10^3/uL (150.0-450.0); RED BLOOD COUNT 3.98 X10^6/uL (3.5-5.4); RED CELL DISTRIBUTION WIDTH 14.5 % (11.6-16.5)
[2018-08-20 05:45] LABS: ALANINE AMINOTRANSFERASE 29 Units/L (12-78); ALBUMIN 2.6 g/dL (3.4-5.0); ALKALINE PHOSPHATASE 47 Units/L (46-116); ASPARTATE AMINO TRANSFERASE 18 Units/L (15-37); BLOOD UREA NITROGEN 15 mg/dL (7-18); CARBON DIOXIDE 27.5 mmol/L (21-32); CHLORIDE 109 mmol/L (98-107); COR CA(FOR HYPOALB) 10.1 mg/dL (8.5-10.1); CREATININE 0.81 mg/dL (0.55-1.02); SODIUM 144 mmol/L (136-145); TOTAL PROTEIN 5.8 g/dL (6.4-8.2); eGFR NON BLACK RACES > 60 (>60)
[2018-08-20 06:46] LABS: PLATELET MORPHOLOGY COMMENT NORMAL (NORMAL)
[2018-08-20] MEDS: NICOTINE PATCH TD SCH (08:38)
[2018-08-20] MEDS: DIFLUCAN 200 MG IV PREMIX* 200 MG/100 ML BAG IV SCH (08:39)
[2018-08-20] MEDS: ROBITUSSIN DM PO SCH ×4 (08:39→21:36)
[2018-08-20] MEDS: PROTONIX INJ 40 MG VIAL IVP SCH (08:39)
[2018-08-20] MEDS: LEVAQUIN PREMIX IV 750 MG 750 MG/150 ML BAG IV SCH (08:39)
[2018-08-20] MEDS: MILK OF MAGNESIA PO SCH ×2 (08:39→21:37)
[2018-08-20] MEDS: DUONEB 0.5 MG/3 MG NEB SCH ×4 (09:15→20:18)
[2018-08-20] MEDS: PULMICORT NEB TX 0.5 MG NEB SCH ×2 (09:15→20:18)
[2018-08-20] MEDS: MUCOMYST 20% 200 MG/ML NEB SCH (09:15)
[2018-08-20] MEDS: COLACE CAP 100 MG PO SCH (21:36)
[2018-08-21] MEDS: ZOSYN VIAL 4.5 GRAMS 4.5 G in NS 100 ML IV + SPIKE MINIBAG* 100 ML IV SCH (05:41)
[2018-08-21 06:18] LABS: BASOPHILS # (AUTO) 0.1 X10^3/uL (0.0-0.1); BASOPHILS % (AUTO) 0.4 % (0.2-1.0); EOSINOPHILS # (AUTO) 0.1 x10^3/uL (0.0-0.2); EOSINOPHILS % (AUTO) 0.7 % (0.9-2.9); HEMATOCRIT 36.9 % (36.0-47.0); HEMOGLOBIN 12.2 g/dL (12.0-16.0); LYMPHOCYTES % (AUTO) 20.5 % (21.0-51.0); MEAN CORPUSCULAR HGB CONC 33.1 g/dL (33.0-35.0); MEAN CORPUSCULAR VOLUME 90.5 fL (80.0-100.0); MEAN PLATELET VOLUME 8.5 fL (7.4-11.0); MONOCYTES # (AUTO) 0.8 x10^3/uL (0.3-0.8); MONOCYTES % (AUTO) 5.2 % (0.0-13.0); NEUTROPHILS # (AUTO) 10.6 x10^3/uL (2.2-4.8); NEUTROPHILS % (AUTO) 73.2 % (42.0-75.0); PLATELET COUNT 306 X10^3/uL (150.0-450.0); RED BLOOD COUNT 4.08 X10^6/uL (3.5-5.4); RED CELL DISTRIBUTION WIDTH 14.5 % (11.6-16.5); WHITE BLOOD COUNT 14.5 X10^3/uL (3.6-10.0)
[2018-08-21 06:39] LABS: ALANINE AMINOTRANSFERASE 33 Units/L (12-78); ALBUMIN 2.5 g/dL (3.4-5.0); ALKALINE PHOSPHATASE 48 Units/L (46-116); ASPARTATE AMINO TRANSFERASE 19 Units/L (15-37); BLOOD UREA NITROGEN 13 mg/dL (7-18); CALCIUM 8.5 mg/dL (8.5-10.1); CARBON DIOXIDE 29.2 mmol/L (21-32); CHLORIDE 106 mmol/L (98-107); COR CA(FOR HYPOALB) 9.7 mg/dL (8.5-10.1); CREATININE 0.71 mg/dL (0.55-1.02); SODIUM 142 mmol/L (136-145); TOTAL PROTEIN 5.5 g/dL (6.4-8.2); eGFR NON BLACK RACES > 60 (>60)
[2018-08-21] MEDS: MILK OF MAGNESIA PO SCH (08:33)
[2018-08-21] MEDS: DIFLUCAN 200 MG IV PREMIX* 200 MG/100 ML BAG IV SCH (08:33)
[2018-08-21] MEDS: PROTONIX INJ 40 MG VIAL IVP SCH ×2 (08:33→08:37)
[2018-08-21] MEDS: ROBITUSSIN DM PO SCH (08:33)
[2018-08-21] MEDS: LEVAQUIN PREMIX IV 750 MG 750 MG/150 ML BAG IV SCH (08:33)
[2018-08-21] MEDS: NICOTINE PATCH TD SCH (08:39)
[2018-08-21] MEDS: DUONEB 0.5 MG/3 MG NEB SCH (08:58)
[2018-08-21] MEDS: PULMICORT NEB TX 0.5 MG NEB SCH (08:58)
[2018-08-21 09:56] VITALS: BP 146/63
== END 2018-08-21 11:41 | disposition home or self-care (01) | DRG 203 ==
LOC: MED/SURG
PROVIDERS: ADMIT Internal Medicine; ATTEND Internal Medicine
DX: Z79.899 Other long term (current) drug therapy; J20.8 Acute bronchitis due to other specified organisms; R06.03 Acute respiratory distress; B96.89 Other specified bacterial agents as the cause of diseases classified elsewhere; I10 Essential (primary) hypertension; J44.9 Chronic obstructive pulmonary disease, unspecified
CPT/HCPCS: 36415; 36600; 71020; 71046; 71260; 80053; 81001; 82550; 82553; 82803; 83735; 84484; 85014; 85018; 85025; 85378; 87040; 87070; 87077; 87086; 87186; 87205; 87502; 93005; 94640; 94760; A4222; C9113; G0378; J1450; J1956; J2543; J2920; J2930; J3475; J7050; J7608; J7620; J7626